=== PATIENT | female | born 1965 | race Caucasian/White ===

== ENCOUNTER 2017-01-10 19:11 | Emergency (ER) | payer BC ==
--- NOTE | 2017-01-10 19:28 | EDM.PDOC ---
ED HPI RENAL/ - General Chief Complaint: Genitourinary Problem Stated Complaint: BLADDER INFECTION PER PATIENT Time Seen by Provider: 01/10/17 19:25 Source: Reports: Patient History Limitations: Reports: No limitations - History of Present Illness INITIAL COMMENTS - FREE TEXT/NARRATIVE: 51 yo female was dx last Wednesday with a UTI at the [facility]. Was given Cipro and is not improving so comes to the ER tonight. Was also dx with AODM and her BS before coming to the ED tonight was 170. Is not sure if a culture was set up or not. Finished her ATB's yesterday morning, and sx's returned this evening, including dysuria, frequency and urgency. No fever or nausea, or flank pain. [place] was contacted and they FAX'd the UA which was normal, not showing any sign of UTI. A urine cx was not set up. Symptom Onset Date: 01/10/17 Symptom Onset Time: 16:00 Timing/Duration: Reports: Hour(s):, Gradual onset Location: Reports: urethral Quality: Reports: burning Severity: mild Improves with: Reports: other (none) Worsens with: Reports: urinating Context: Reports: other (NIDDM with a pHx of UTI's) Associated Symptoms: Reports: burning, dysuria, frequency, urgency, voiding small amounts - Related Data Allergies/ADRs: Allergies Allergy/AdvReac Type Severity Reaction Status Date / Time No Known Allergies Allergy Verified 01/10/17 19:34 Home Meds: Home Meds Cephalexin [IJD: Cephalexin] 500 mg PO .EVERY 8 HOURS #20 cap 01/10/17 [Rx] Ferrous Gluconate 240 mg PO BID 01/10/17 [History] Ibuprofen 200 mg PO Q4HR 01/10/17 [History] Insulin Glarg,Human.Rec.Analog [Lantus Solostar] 12 units SQ BEDTIME 01/10/17 [ History] Potassium Chloride 20 meq PO TID 01/10/17 [History] Sertraline [Zoloft] 100 mg PO DAILY 01/10/17 [History] metFORMIN [Glucophage] 500 mg PO BIDMEALS 01/10/17 [History] ED ROS GENERAL - Review of Systems Review Of Systems: See Below Constitutional: Reports: no symptoms HEENT: Reports: No symptoms Respiratory: Reports: no symptoms GI/Abdominal: Reports: No symptoms : Reports: dysuria, frequency, pain, urgency. Denies: discharge, flank pain, hematuria, incontinence, urinary retention Musculoskeletal: Reports: no symptoms ED EXAM, RENAL/ - Physical Exam Exam: See Below Exam Limited By: No limitations General Appearance: alert, WD/WN, no apparent distress Eye Exam: bilateral eye: conjunctival injection, EOMI, normal inspection Ears: normal external exam, normal canal, hearing grossly normal Nose: normal inspection, normal mucosa, no blood Throat/Mouth: Normal inspection, Normal lips, Normal teeth, Normal oropharynx, Normal voice, No airway compromise Head: atraumatic, normocephalic Neck: normal inspection, supple Respiratory/Chest: no respiratory distress, lungs clear, normal breath sounds, no accessory muscle use Cardiovascular: regular rate, rhythm, no edema GI/Abdominal: normal bowel sounds, soft, non tender Back Exam: normal inspection Extremities: normal inspection, normal range of motion, non-tender, no pedal edema Neurological: alert, oriented, CN II-XII intact, normal cognition, no motor/ sensory deficits Psychiatric: normal affect, normal mood Skin Exam: Warm, Dry, Intact, Normal color, No rash Lymphatic: no adenopathy Course - Vital Signs Text/Narrative:: cephalexin 500 mg po Last Recorded V/S: Last Vital Signs Temp 37.1 C 01/10/17 19:28 Pulse 85 01/10/17 19:28 Resp 20 01/10/17 19:28 BP 129/81 01/10/17 19:28 Pulse Ox 100 01/10/17 19:28 - Orders/Labs/Meds Orders: Active Orders 24 hr Category Date Time Status Accu Check [Blood Glucose Check, Bedside] [RC] ONETIME Care 01/10/17 19:20 Inactive CULTURE URINE [RM] Stat Lab 01/10/17 19:52 Uncollected Labs: Laboratory Tests 01/10/17 Range/Units 19:16 Urine Color Yellow (YELLOW) Urine Appearance Cloudy (CLEAR) Urine pH 7.0 H (5.0-6.5) Ur Specific [place] 1.010 (1.010-1.025) Urine Protein Negative (NEGATIVE) mg/dL Urine Glucose (UA) Normal (NEGATIVE) mg/dL Urine Ketones Negative (NEGATIVE) mg/dL Urine Occult Blood Large H (NEGATIVE) Urine Nitrite Negative (NEGATIVE) Urine Bilirubin Negative (NEGATIVE) Urine Urobilinogen Normal (NEGATIVE) mg/dL Ur Leukocyte Esterase Large H (NEGATIVE) Urine RBC 20-30 H (0) Urine WBC Packed H (0) Ur Squamous Epith Cells Moderate H (NS,R,O) Urine Bacteria Moderate H (NS) Meds: Medications Discontinued Medications Generic Name Dose Route Start Last Admin Trade Name Fausto PRN Reason Stop Dose Admin Cephalexin 500 mg 01/10/17 19:53 Keflex PO 01/10/17 19:54 ONETIME ONE Departure - Departure Time of Disposition: 20:00 Disposition: Home, Self-Care 01 Condition: good Clinical Impression: Cystitis Prescriptions: Cephalexin [IJD: Cephalexin] 500 mg PO .EVERY 8 HOURS #20 cap Referrals: Josesito Fu MD [Primary Care Provider] - Forms: ED Department Discharge Additional Instructions: Take cephalexin every 8 hrs until gone. Check with your doctor's office in 3 days to see if you are on an effective antibiotic. Drink ample fluids. Take AZO as needed for dysuria sx's. - My Orders Last 24 Hours: My Active Orders 01/10/17 19:20 Accu Check [Blood Glucose Check, Bedside] [] ONETIME 01/10/17 19:52 CULTURE URINE [RM] Stat - Assessment/Plan Last 24 Hours: My Active Orders 01/10/17 19:20 Accu Check [Blood Glucose Check, Bedside] [] ONETIME 01/10/17 19:52 CULTURE URINE [RM] Stat
[2017-01-10] MEDS ORDERED: Cephalexin 500 MG Cap PO ONE (19:53)
[2017-01-10 20:11] VITALS: BP 125/75
== END 2017-01-10 20:05 | disposition home or self-care (01) ==
LOC: FB.ED 19:11
DX: N30.90 Cystitis, unspecified without hematuria (principal); Z79.4 Long term (current) use of insulin; Z79.84 Long term (current) use of oral hypoglycemic drugs
CPT/HCPCS: 81001; 87086; 87088; 99284; A9270; 87186

== ENCOUNTER 2023-10-05 06:39 | Day surgery (SDC) | payer BC ==
[2023-10-05] MEDS ORDERED: Lidocaine 2% 5 ML SDV IV ONE (06:40)
[2023-10-05] MEDS ORDERED: Propofol 200 MG/20 ML SDV IV ONE (06:40)
[2023-10-05] MEDS ORDERED: Sodium Chloride 0.9% 10 ML Syringe FLUSH PRN (06:45)
[2023-10-05] MEDS ORDERED: Lactated Ringers 1,000 ML IV SCH (06:45)
[2023-10-05] MEDS ORDERED: Simethicone Drops 40 MG/0.6 ML 30 ML Bottle ONE (08:07)
[2023-10-05 09:44] VITALS: BP 135/79; PULSE 74
== END 2023-10-05 10:00 | disposition home or self-care (01) ==
LOC: FB.SDS 06:39
PROVIDERS: ATTEND Surgery
DX: Z12.11 Encounter for screening for malignant neoplasm of colon (principal); K57.30 Diverticulosis of large intestine without perforation or abscess without bleeding; F41.9 Anxiety disorder, unspecified; K21.9 Gastro-esophageal reflux disease without esophagitis; F17.210 Nicotine dependence, cigarettes, uncomplicated; Z79.899 Other long term (current) drug therapy; Z79.84 Long term (current) use of oral hypoglycemic drugs; Z88.2 Allergy status to sulfonamides
CPT/HCPCS: A9270; G0121; J2704; J7120

== ENCOUNTER 2023-10-23 21:49 | Emergency (ER) | payer BC ==
[2023-10-23] MEDS ORDERED: Ondansetron 4 MG Tab.DIS PO ONE (21:50)
[2023-10-23] MEDS ORDERED: Metoclopramide 10 MG/2 ML SDV IVPUSH ONE (22:12)
[2023-10-23] MEDS ORDERED: Sodium Chloride 0.9% 1,000 ML IV ONE (22:12)
[2023-10-23] MEDS ORDERED: Sodium Chloride 0.9% 10 ML Syringe FLUSH PRN (22:12)
[2023-10-23 22:26] LABS: HEMATOCRIT 45.7 % (34.2-48.2); HEMOGLOBIN 15.5 g/dL (11.4-15.5); MEAN CORPUSCULAR HEMOGLOBIN 28.4 pg (23.9-33.9); MEAN CORPUSCULAR VOLUME 83.6 fL (76.7-100.5); MEAN PLATELET VOLUME 7.5 fL (7.1-12.4); PLATELET COUNT,PLT 167 x10(3)uL (151-488); RED BLOOD CELL COUNT 5.47 x10(6)uL (3.60-5.20); RED CELL DISTRIBUTION WIDTH 13.8 % (12.3-16.5); WHITE BLOOD CELL COUNT,WBC 9.2 x10-3/uL (3.0-10.3)
[2023-10-23 22:30] LABS: BLOOD UREA NITROGEN,BUN 16 mg/dL (7-18); CALCIUM 9.8 mg/dL (8.6-10.2); CARBON DIOXIDE,CO2 25 mmol/L (21-32); CHLORIDE,CL 103 mmol/L (100-110); ESTIMATED GFR 66 mL/min (>60); GLUCOSE RANDOM 192 mg/dL (80-116); POTASSIUM,K 3.8 mmol/L (3.5-5.3); SODIUM,NA 138 mmol/L (135-145)
[2023-10-23 22:36] LABS: A/G RATIO 0.8; ALANINE AMINOTRANSFERASE,ALT 23 U/L (12-36); ALBUMIN 3.5 g/dL (3.5-5.2); ALKALINE PHOSPHATASE 141 IU/L (56-112); ASPARTATE AMNIOTRANSFERASE,AST 18 IU/L (5-25); BILIRUBIN TOTAL 0.8 mg/dL (0.1-1.3); PROTEIN TOTAL,TP 8.1 g/dL (6.0-8.0)
[2023-10-23 22:39] LABS: LIPASE 46 U/L (16-77); TROPONIN I 5.3 pg/mL (4.0-60.3)
[2023-10-23] MEDS ORDERED: Naloxone 0.4 MG/ML SDV IVPUSH PRN (22:39)
[2023-10-23] MEDS ORDERED: HYDROmorphone 2 MG/ML SDV IVPUSH ONE (22:39)
[2023-10-23 22:40] LABS: C-REACTIVE PROTEIN < 0.50 mg/dL (<0.50)
[2023-10-23 22:45] LABS: MAGNESIUM 1.1 mg/dL (1.8-2.5)
[2023-10-23 22:51] LABS: BAND PERCENT MAN 1 % (0-6); LYMPHOCYTES PERCENT MAN 6 % (13-37); MONOCYTES PERCENT MAN 3 % (4-12); SEG NEUTROPHILS PERCENT MAN 90 % (46-82)
[2023-10-23] MEDS ORDERED: Magnesium Sulfate/Water 2 GM in Premix Bag 1 BAG IV ONE (23:26)
[2023-10-23] MEDS ORDERED: Sodium Chloride 0.9% 1,000 ML IV SCH (23:45)
[2023-10-24 02:08] VITALS: BP 137/79; PULSE 120
== END 2023-10-24 02:05 | disposition home or self-care (01) ==
LOC: FB.ED 21:49
DX: K52.9 Noninfective gastroenteritis and colitis, unspecified (principal); E83.42 Hypomagnesemia; E78.00 Pure hypercholesterolemia, unspecified; K21.9 Gastro-esophageal reflux disease without esophagitis; E11.9 Type 2 diabetes mellitus without complications; Z87.891 Personal history of nicotine dependence; Z79.899 Other long term (current) drug therapy; Z79.84 Long term (current) use of oral hypoglycemic drugs; Z88.2 Allergy status to sulfonamides
CPT/HCPCS: 36415; 74176; 80053; 83690; 83735; 84484; 85025; 86140; 93005; 96361; 96365; 96375; 99284; J1170; J2765; J3475; J3490; J7030; Q0162

== ENCOUNTER 2024-02-14 06:40 | Day surgery (SDC) | payer BC ==
[2024-02-14] MEDS ORDERED: Propofol 200 MG/20 ML SDV IV ONE (06:41)
[2024-02-14] MEDS ORDERED: fentaNYL 100 MCG/2 ML SDV IV ONE (06:41)
[2024-02-14] MEDS ORDERED: Midazolam 1 MG/ML 2 ML SDV IV ONE (06:41)
[2024-02-14] MEDS ORDERED: Sodium Chloride 0.9% 10 ML Syringe FLUSH PRN (06:45)
[2024-02-14] MEDS: Lactated Ringers 1,000 ML IV SCH (07:45)
[2024-02-14 09:31] VITALS: BP 113/74; PULSE 77
== END 2024-02-14 09:36 | disposition home or self-care (01) ==
LOC: FB.SDS 06:40
PROVIDERS: ATTEND Surgery
DX: K22.2 Esophageal obstruction (principal); K29.70 Gastritis, unspecified, without bleeding; B37.81 Candidal esophagitis; K31.A0 Gastric intestinal metaplasia, unspecified; E11.9 Type 2 diabetes mellitus without complications; E61.2 Magnesium deficiency; Z79.85 Long-term (current) use of injectable non-insulin antidiabetic drugs; Z79.899 Other long term (current) drug therapy; Z88.2 Allergy status to sulfonamides
CPT/HCPCS: 00731; 43239; 43249; 88305; 88312; C1726; J2250; J2704; J3010; J7120

== ENCOUNTER 2025-01-31 15:08 | Emergency (ER) | payer BC ==
[2025-01-31] MEDS ORDERED: Sodium Chloride 0.9% 10 ML Syringe FLUSH PRN (15:25)
[2025-01-31] MEDS: Magnesium Sulf/Wat 2 GM/50 mL 2 GM in Premix Bag 1 BAG IV ONE (15:35)
[2025-01-31] MEDS: Sodium Chloride 0.9% 1,000 ML IV SCH (15:35)
[2025-01-31] MEDS: Prochlorperazine 10 MG/2 ML SDV IVPUSH ONE (15:38)
[2025-01-31] MEDS: SUMAtriptan 6 MG/0.5 ML SDV SUBCUT ONE (15:39)
[2025-01-31 17:13] VITALS: BP 120/74; PULSE 98
== END 2025-01-31 17:20 | disposition home or self-care (01) ==
LOC: FB.ED 15:08
DX: K59.00 Constipation, unspecified (principal); R16.1 Splenomegaly, not elsewhere classified; R51.9 Headache, unspecified; E83.42 Hypomagnesemia; E78.00 Pure hypercholesterolemia, unspecified; E11.9 Type 2 diabetes mellitus without complications; Z88.2 Allergy status to sulfonamides; Z79.84 Long term (current) use of oral hypoglycemic drugs; Z79.899 Other long term (current) drug therapy; Z79.85 Long-term (current) use of injectable non-insulin antidiabetic drugs
CPT/HCPCS: 36415; 70450; 74160; 80053; 82150; 83690; 83735; 85025; 96365; 96366; 96372; 96375; 99283-25; 99284; J0780; J3030; J3475; J7030; Q9967

== ENCOUNTER 2025-05-22 06:26 | Day surgery (SDC) | payer BC ==
[2025-05-22] MEDS ORDERED: Midazolam 1 MG/ML 2 ML SDV IV ONE (06:27)
[2025-05-22] MEDS ORDERED: Sodium Chloride 0.9% 10 ML Syringe FLUSH PRN (06:45)
[2025-05-22 07:07] VITALS: BP 110/73; PULSE 78
[2025-05-22] MEDS: Lactated Ringers 1,000 ML IV PRN (07:16)
[2025-05-22] MEDS: acetaZOLAMIDE 500 MG Cap.ER PO ONE (08:30)
== END 2025-05-22 09:04 | disposition home or self-care (01) ==
LOC: FB.SDS 06:26
PROVIDERS: ATTEND Ophthalmology
DX: E11.36 Type 2 diabetes mellitus with diabetic cataract (principal); H26.9 Unspecified cataract; H21.81 Floppy iris syndrome; E78.5 Hyperlipidemia, unspecified; E78.00 Pure hypercholesterolemia, unspecified; F17.210 Nicotine dependence, cigarettes, uncomplicated; Z79.899 Other long term (current) drug therapy; Z79.84 Long term (current) use of oral hypoglycemic drugs
CPT/HCPCS: 00142; 66984; 82947; A9270; J2250; J7120; V2632